=== PATIENT | male | born 1945 ===

== ENCOUNTER 2018-04-09 08:11 | Emergency (ER) | payer MEDICARE ==
[2018-04-09 08:26] VITALS: TEMP 97.6
--- NOTE | 2018-04-09 09:16 | C.PDOC ---
History Of Present Illness Patient is a 73 y/o male brought in by EMS after he was found walking around [place]. 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 He was unable to tell police his address or name, and was brought to the ED for medical clearance. Patient offers no complaints. Denies any pain or injury. On arrival he is awake and alert, ambulatory with steady gait. Reviewed prior visits: Patient has history of dementia, ETOH and cannabis abuse. He has multiple previous visits for medical clearance after eloping from home. Time Seen by Provider: 04/09/18 08:19 Chief Complaint (Nursing): Medical Clearance History Per: Patient History/Exam Limitations: other (dementia) Pain Scale Rating Of: 0 Past Medical History Reviewed: Historical Data, Nursing Documentation, Vital Signs Vital Signs: Last Vital Signs Temp 97.6 F 04/09/18 08:20 Pulse 82 04/09/18 08:20 Resp 17 04/09/18 08:20 BP 142/90 04/09/18 08:20 Pulse Ox 97 04/09/18 08:20 - Medical History PMH: Dementia, Seizures Family History: States: Unknown Family Hx - Social History Hx Alcohol Use: Yes Hx Substance Use: Yes (cannabis) - Immunization History Hx Tetanus Toxoid Vaccination: No Hx Influenza Vaccination: No Hx Pneumococcal Vaccination: No Review Of Systems Constitutional: Negative for: Fever Cardiovascular: Negative for: Chest Pain Respiratory: Negative for: Shortness of Breath Gastrointestinal: Negative for: Abdominal Pain Neurological: Positive for: Confusion (HX of dementia). Negative for: Weakness, Incoordination Physical Exam - Physical Exam Appears: No Acute Distress, Confused Skin: Warm, Dry Head: Atraumatic, Normacephalic Eye(s): bilateral: Normal Inspection, PERRL, EOMI Neck: Normal ROM Chest: Symmetrical Cardiovascular: Rhythm Regular, No Murmur Respiratory: Normal Breath Sounds, No Accessory Muscle Use, Other (Speaking in full sentences) Gastrointestinal/Abdominal: Soft, No Tenderness, No Distention Extremity: Bilateral: Normal Color And Temperature, Normal ROM (x4) Pulses: Left Dorsalis Pedis: Normal, Right Dorsalis Pedis: Normal Neurological/Psych: Other (Awake, Alert) Disoriented To: Time, Situation Gait: Steady ED Course And Treatment O2 Sat by Pulse Oximetry: 97 (RA) Pulse Ox Interpretation: Normal Progress Note: BS FS is 111. Patients daughter was contacted, states she is unable to come pick patient up as she is at work. Plan is to discharge patient to custody of family, pending relative to chart picker. Disposition Counseled Patient/Family Regarding: Diagnosis, Need For Followup - Disposition Referrals: [facility] [Outside] Disposition: HOME/ ROUTINE Disposition Time: 10:10 Condition: STABLE Instructions: Dementia (DC) Forms: [employer] (Portuguese) Print Language: MONGOLIAN - Clinical Impression Clinical Impression: At risk for elopement, Dementia - Scribe Statement The provider has reviewed the documentation as recorded by the Jody Phelps Provider Attestation: All medical record entries made by the Jody were at my direction and personally dictated by me. I have reviewed the chart and agree that the record accurately reflects my personal performance of the history, physical exam, medical decision making, and the department course for this patient. I have also personally directed, reviewed, and agree with the discharge instructions and disposition.
[2018-04-09 10:12] VITALS: BP 162/83; PULSE 76; RESP 19; O2SAT 100
== END 2018-04-09 10:22 | disposition home or self-care (01) ==
LOC: C.ER 08:11
DX: F03.90 Unspecified dementia, unspecified severity, without behavioral disturbance, psychotic disturbance, mood disturbance, and anxiety (principal)